=== PATIENT | female | born 1960 | race Caucasian/White ===

== ENCOUNTER 2018-10-18 17:07 | Emergency (ER) | payer MEDICARE ==
[~2018-10-18] VITALS: Ht 165.1 cm; Wt 76.4 kg
[2018-10-18] MEDS ORDERED: HYDR-3965 PO (18:47)
[2018-10-18 19:09] VITALS: BP 139/94
== END 2018-10-18 19:10 | disposition home or self-care (01) ==
LOC: ER 17:08
DX: S92.421A Displaced fracture of distal phalanx of right great toe, initial encounter for closed fracture (principal); G89.29 Other chronic pain; M79.7 Fibromyalgia; Z90.49 Acquired absence of other specified parts of digestive tract; Z98.890 Other specified postprocedural states; Z88.1 Allergy status to other antibiotic agents; Z88.6 Allergy status to analgesic agent; W20.8XXA Other cause of strike by thrown, projected or falling object, initial encounter; Y93.89 Activity, other specified; Y92.89 Other specified places as the place of occurrence of the external cause; Y99.9 Unspecified external cause status
CPT/HCPCS: 10160; 73660; 99283; 99284